=== PATIENT | female | born 1995 | race Two or more races ===

== ENCOUNTER 2017-09-22 00:27 | Emergency (ER) | payer MEDICARE, MEDICAID ==
[~2017-09-22] VITALS: Ht 172.7 cm; Wt 90.7 kg
--- NOTE | 2017-09-22 00:27 | NUR ---
bbra 839 from home; "recent dx of tumor, i want to hurt myself'" VSS NAD A/OX2 DISORGANIZED THOUGHT PROCESS. ABLE TO MAKE NEEDS KNOWN. WILL CONTINUE TO MONITOR FOR ANY CHANGES DURING THE SHIFT.
--- NOTE | 2017-09-22 00:27 | NUR ---
POLICE AT BEDSIDE STATING "WE ARE GOING TO WRITE A HOLD"
--- NOTE | 2017-09-22 00:28 | NUR ---
ER MD CANELA AT BEDSIDE
--- NOTE | 2017-09-22 00:29 | NUR ---
[employer]IS [employer] REPORTER ART AT BEDSIDE
[2017-09-22 01:16] LABS: BASOPHILS % (AUTO) 0.2 % (0.0-2.0); HEMATOCRIT 31 % (33-45); HEMOGLOBIN 10.4 g/dL (11.5-14.8); LYMPHOCYTES # (AUTO) 0.8 /CMM (0.8-4.8); LYMPHOCYTES % (AUTO) 21.6 % (20.0-44.0); MEAN CORPUSCULAR HEMOGLOBIN 35 PG (26.0-33.0); MEAN CORPUSCULAR HGB CONC 34 g/dl (31.0-36.0); MEAN CORPUSCULAR VOLUME 103 fL (82-100); MONOCYTES # (AUTO) 0.3 /CMM (0.1-1.30); MONOCYTES % (AUTO) 8.1 % (2.0-12.0); NEUTROPHILS # (AUTO) 2.5 /CMM (1.8-8.9); NEUTROPHILS % (AUTO) 69.1 % (43.0-81.0); PLATELET COUNT (AUTO) 127 /CMM (150-450); RDW COEFFICIENT OF VARIATION 18.5 (11.5-15.0); WHITE BLOOD COUNT (AUTO) 3.6 K/uL (4.3-11.0)
[2017-09-22 01:28] LABS: CALCIUM, SERUM 9.4 mg/dL (8.5-10.1); CARBON DIOXIDE 26 mmol/L (21-32); CHLORIDE 102 mmol/L (98-107); CREATININE 0.8 mg/dL (0.6-1.3); GLUCOSE 102 mg/dL (74-106); POTASSIUM 3.9 mmol/L (3.5-5.1); SODIUM SERUM 138 mmol/L (136-145); UREA NITROGEN, BLOOD 8 mg/dL (7-18)
[2017-09-22 01:33] LABS: ALANINE AMINOTRANSFERASE 19 U/L (12-78); ALBUMIN 3.9 g/dL (3.4-5.0); ALKALINE PHOSPHATASE 84 U/L (46-116); ASPARTATE AMINOTRANSFERASE 11 U/L (15-37); BILIRUBIN,DIRECT 0.1 mg/dL (0.0-0.2); BILIRUBIN,TOTAL 0.3 mg/dL (0.2-1.0)
[2017-09-22 01:34] LABS: ACETAMINOPHEN 0 ug/ml (10-30); ALCOHOL, BLOOD < 3 mg/dL (0-0); SALICYLATE 0.9 mg/dL (2.8-20.0)
--- NOTE | 2017-09-22 02:30 | NUR ---
PATIENT IS IN STABLE CONDITION. VSS NAD. WILL CONTINUE TO MONITOR FOR ANY CHANGES DURING THE SHIFT.
--- NOTE | 2017-09-22 04:50 | NUR ---
ATTEMPTED TO CALL MOTHER. PHONE NUMBER IS IN CRISIS MEMBER NOTES. WILL ATTEMPT AGAIN
--- NOTE | 2017-09-22 05:55 | NUR ---
PATIENT IS SLEEPING IN BED COMFORTABLY. NO SIGNS OF DISTRESS AT THIS TIME. WILL CONTINUE TO MONITOR FOR ANY CHANGES
--- NOTE | 2017-09-22 06:10 | NUR ---
CALLED MOTHER REGARDING PICKING UP THIS PATIENT OR HAVING TRANSPORT SET UP TO TAKE HER HOME. AWAITING CALL BACK FROM MOTHER
--- NOTE | 2017-09-22 06:31 | NUR ---
CALLED MOTHER, KALA FOR THE 3RD TIME AND LEFT A VOICEMAIL. WILL CONTINUE TO MONITOR AND AWAIT CALL BACK.
--- NOTE | 2017-09-22 06:50 | NUR ---
PT REPORTED [place] [id number] [place] [id number]. PT DOES NOT REMEMBER HER DADS NUMBER.
--- NOTE | 2017-09-22 07:06 | NUR ---
RECEIVED REPORT FOR BRITTNEY
--- NOTE | 2017-09-22 07:38 | NUR ---
CALLED MOTHER BACK WITH NO ANSWER, VOICEMAIL LEFT. WILL CONTINUE TO MONITOR.
[2017-09-22 08:16] VITALS: BP 116/68
--- NOTE | 2017-09-22 08:17 | NUR ---
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 Patient discharged to home in stable condition. Written and verbal after care instructions given. Patient/family verbalizes understanding of instruction.
== END 2017-09-22 08:16 | disposition home or self-care (01) ==
LOC: ER 00:28
DX: S60.812A Abrasion of left wrist, initial encounter (principal); D49.6 Neoplasm of unspecified behavior of brain; F12.10 Cannabis abuse, uncomplicated; Y08.89XA Assault by other specified means, initial encounter; Y93.89 Activity, other specified; Y92.89 Other specified places as the place of occurrence of the external cause; Y99.8 Other external cause status
CPT/HCPCS: 36415; 80048-TC; 80076-TC; 80305; 84703-TC; 85025-TC; A4606; G0480; Z7610